=== PATIENT | female | born 1980 | race Caucasian/White ===

== ENCOUNTER 2017-03-30 09:43 | Emergency (ER) | payer OTHER ==
[2017-03-30 09:57] VITALS: BP 141/93; TEMP 97.9; O2SAT 97
--- NOTE | 2017-03-30 09:58 | ED.PDOC ---
History of Present Illness - General Chief Complaint: Lower Extremity Injury Stated Complaint: L outer foot/heel discomfort Time Seen by Provider: 03/30/17 09:58 Source: patient Exam Limitations: no limitations - History of Present Illness Initial Comments: Kayla Freeman 37 y/o female stated that she was exercising at [facility] on the [employer] machine but lost her balanced and twisted left ankle and foot then landed on the floor.Has buring pain on heel and side of her foot and ankle left with pain on weight bearing.No head/ neck'/hip injuries. Occurred: yesterday Pain - Lower Extremity: moderate: Left Ankle, Left Foot Method of Injury: twisted Improving Factors: rest Worsening Factors: movement Allergies/Adverse Reactions: Allergies NO KNOWN ALLERGY Allergy (Verified 03/30/17 09:57) Home Medications: Ambulatory Orders Citalopram Hydrobromide [Celexa] 10 mg PO DAILY 03/30/17 Gabapentin 600 mg PO BID 03/30/17 Losartan Potassium 50 mg PO DAILY 03/30/17 metFORMIN HCL [Glucophage] 500 mg PO BID 03/30/17 Review of Systems - Review of Systems Constitutional: States: no symptoms reported EENTM: States: no symptoms reported Respiratory: States: no symptoms reported Musculoskeletal: States: see HPI Neurological: States: no symptoms reported Past Medical History (General) - Patient Medical History Hx Stroke: No Hx Congestive Heart Failure: No Hx Hypertension: Yes Hx Diabetes: Yes Hx MRSA: No Hx Other PMH: Yes - fibromyalgia Surgical History: other - hysterectomy - Vaccination History Hx Influenza Vaccination: No Hx Pneumococcal Vaccination: No - Social History Hx Physical Abuse: No Hx Emotional Abuse: No Hx Suspected Abuse: No - Activities of Daily Living Patient Lives Alone: No - family - Female History Patient is a Female of Child Bearing Age (10 -59 yrs old): No - hysterectomy Family Medical History - Family History Mother Living Status: Still Living Hx Family Congestive Heart Failure: - Grandmother had CHF Hx Cardiac Disease: Yes Hx Family Diabetes: Yes - Grandmother had DM Physical Exam - Physical Exam General Appearance: Alert, No apparent distress Eyes, Ears, Nose, Throat: PERRL/EOMI, normal ENT inspection, pharynx normal Neck: non-tender, full range of motion, supple Cardiovascular/Respiratory: regular rate, rhythm, no M/R/G, normal peripheral pulses, normal breath sounds Gastrointestinal/Abdominal: non-tender, no organomegaly Back: normal inspection, no vertebral tenderness Thigh/Hip: normal inspection, no evidence of injury Leg: normal inspection, no evidence of injury Knee: normal inspection, no evidence of injury Ankle: limited ROM - pain,no instability, pain - left ankle, soft tissue tenderness Foot: limited ROM - pain, soft tissue tenderness Neuro/Tendon: normal sensation, normal motor functions, normal tendon functions , responds to pain, no evidence tendon injury Mental Status: alert, oriented x 3 Skin: normal color, warm/dry Progress - Progress Progress: 03/30/17 10:13 Last Vital Signs Temp 97.9 F 03/30/17 09:50 Pulse 76 03/30/17 09:50 Resp 18 03/30/17 09:50 BP 141/93 03/30/17 09:50 Pulse Ox 97 03/30/17 09:50 Departure - Departure Clinical Impression: with 19 completed weeks gestation Fall Qualifiers: Encounter type: initial encounter Qualified Code(s): W19.XXXA - Unspecified fall, initial encounter Contusion of groin, right Qualifiers: Encounter type: initial encounter Qualified Code(s): S30.1XXA - Contusion of abdominal wall, initial encounter Time of Disposition: :18 Disposition: Discharge to Home or Self Care Condition: Good Departure Forms: ED Discharge - Pt. Copy, Patient Portal Self Enrollment Referrals: Tucker Noe MD [Primary Care Provider] - 1-2 Weeks Home Medications: Ambulatory Orders Citalopram Hydrobromide [Celexa] 10 mg PO DAILY 03/30/17 Gabapentin 600 mg PO BID 03/30/17 Losartan Potassium 50 mg PO DAILY 03/30/17 metFORMIN HCL [Glucophage] 500 mg PO BID 03/30/17
--- NOTE | 2017-03-30 10:24 | ED.PDOC ---
History of Present Illness - General Chief Complaint: Lower Extremity Injury Stated Complaint: L outer foot/heel discomfort Time Seen by Provider: 03/30/17 09:58 Source: patient Exam Limitations: no limitations - History of Present Illness Initial Comments: Kayla Freeman 37 y/o female stated while exercising with the elliptical machine at [employer] center lost her balance twisting left ankle and foot then fell to the floor .Had burning pain on her left ankle ,heel and foot after the incident denies hip ;head injuries Occurred: yesterday Pain - Lower Extremity: moderate: Left Ankle, Left Foot Method of Injury: fell, twisted Improving Factors: rest Worsening Factors: movement Allergies/Adverse Reactions: Allergies NO KNOWN ALLERGY Allergy (Verified 03/30/17 09:57) Home Medications: Ambulatory Orders Citalopram Hydrobromide [Celexa] 10 mg PO DAILY 03/30/17 Gabapentin 600 mg PO BID 03/30/17 Losartan Potassium 50 mg PO DAILY 03/30/17 metFORMIN HCL [Glucophage] 500 mg PO BID 03/30/17 Review of Systems - Review of Systems Constitutional: States: no symptoms reported EENTM: States: no symptoms reported Respiratory: States: no symptoms reported Cardiology: States: no symptoms reported Musculoskeletal: States: see HPI Neurological: States: no symptoms reported Past Medical History (General) - Patient Medical History Hx Stroke: No Hx Congestive Heart Failure: No Hx Hypertension: Yes Hx Diabetes: Yes Hx MRSA: No Hx Other PMH: Yes - fibromyalgia Surgical History: other - hysterectomy - Vaccination History Hx Influenza Vaccination: No Hx Pneumococcal Vaccination: No - Social History Hx Physical Abuse: No Hx Emotional Abuse: No Hx Suspected Abuse: No - Activities of Daily Living Patient Lives Alone: No - family - Female History Patient is a Female of Child Bearing Age (10 -59 yrs old): No - hysterectomy Family Medical History - Family History Mother Living Status: Still Living Hx Family Congestive Heart Failure: Yes - Grandmother had CHF Hx Cardiac Disease: Yes Hx Family Diabetes: Yes - Grandmother had DM Physical Exam - Physical Exam General Appearance: Alert, No apparent distress Eyes, Ears, Nose, Throat: PERRL/EOMI, normal ENT inspection, pharynx normal Neck: non-tender, full range of motion Cardiovascular/Respiratory: regular rate, rhythm, no M/R/G, normal peripheral pulses, normal breath sounds Gastrointestinal/Abdominal: non-tender, no organomegaly Back: normal inspection, no vertebral tenderness Thigh/Hip: normal inspection, no evidence of injury Leg: normal inspection, no evidence of injury Knee: normal inspection, no evidence of injury Ankle: limited ROM - painful, pain - weight bearing, soft tissue tenderness - left ankle Foot: bone tenderness - left foot, limited ROM - pain Neuro/Tendon: normal sensation, normal motor functions, normal tendon functions , responds to pain Mental Status: alert, oriented x 3 Skin: normal color, warm/dry Progress - Progress Progress: 03/30/17 10:45 Last Vital Signs Temp 97.9 F 03/30/17 09:50 Pulse 76 03/30/17 09:50 Resp 18 03/30/17 09:50 BP 141/93 03/30/17 09:50 Pulse Ox 97 03/30/17 09:50 - EKG/XRAY/CT XRAY: ankle - no fractures-left ankle Departure - Departure Clinical Impression: Fall Qualifiers: Encounter type: initial encounter Qualified Code(s): W19.XXXA - Unspecified fall, initial encounter Sprain of foot, left Qualifiers: Encounter type: initial encounter Qualified Code(s): S93.602A - Unspecified sprain of left foot, initial encounter Sprain of left ankle Qualifiers: Encounter type: initial encounter Involved ligament of ankle: tibiofibular ligament Qualified Code(s): S93.432A - Sprain of tibiofibular ligament of left ankle, initial encounter Time of Disposition: 10:50 Disposition: Discharge to Home or Self Care Condition: Good Departure Forms: ED Discharge - Pt. Copy, Patient Portal Self Enrollment Instructions: DI for Ankle Sprain, DI for Foot Sprain Referrals: Tucker Noe MD [Primary Care Provider] - 1-2 Weeks Home Medications: Ambulatory Orders Citalopram Hydrobromide [Celexa] 10 mg PO DAILY 03/30/17 Gabapentin 600 mg PO BID 03/30/17 Losartan Potassium 50 mg PO DAILY 03/30/17 metFORMIN HCL [Glucophage] 500 mg PO BID 03/30/17 Additional Instructions: May take Aleve (otc) one tablet 2-3 x a day for pain as needed;Follow up with primary md in one week call for appointment if needed
--- NOTE | 2017-03-30 10:32 | RAD ---
Left ankle three views INDICATION: Ankle pain IMPRESSION: No fracture or focal destructive process. No advanced arthrosis. No focal osteochondral lesion. Mortise and syndesmosis appear congruent. Small plantar spur/enthesophyte. Electronically signed by: Mamadou Faria MD 03/30/2017 10:31 AM CDT
--- NOTE | 2017-03-30 10:32 | RAD ---
Left foot three views INDICATION: Foot pain IMPRESSION: Small osseous excrescence in the distal phalanx of the great toe developmental in appearance. Mild soft tissue swelling over the lateral aspect of the small toe. This may be post traumatic or inflammatory. No definite fracture in this area. Small plantar spur/enthesophyte. Electronically signed by: Maamdou Faria MD 03/30/2017 10:30 AM CDT
== END 2017-03-30 11:02 | disposition home or self-care (01) ==
LOC: ER 09:43
DX: S93.602A Unspecified sprain of left foot, initial encounter (principal); S93.432A Sprain of tibiofibular ligament of left ankle, initial encounter; I10 Essential (primary) hypertension; E11.9 Type 2 diabetes mellitus without complications; M79.7 Fibromyalgia; X58.XXXA Exposure to other specified factors, initial encounter; Y93.A1 Activity, exercise machines primarily for cardiorespiratory conditioning; Y92.89 Other specified places as the place of occurrence of the external cause

== ENCOUNTER → 2017-09-30 | Outpatient (CLI) | payer OTHER ==
--- NOTE | 2017-10-01 11:25 | US ---
EXAM DESCRIPTION: Abdomen,Complete CLINICAL HISTORY: R10.11 R19.7 right upper quadrant pain COMPARISON: None. TECHNIQUE: Real-time sonographic images of the abdomen are obtained. FINDINGS: Pancreas is unremarkable. The right lobe of the liver measures 17.3 cm. The liver is diffusely heterogeneous and increased in echogenicity. No focal hepatic mass is seen. The gallbladder is normally distended and free of abnormal internal echogenicities. No gallbladder wall thickening or pericholecystic fluid is seen. The common bile duct measures 5.4mm in greatest diameter. The right kidney measures 11.1 x 4.6 x 5.3cm. The left kidney measures 11.2 x 5.7 x 5.9 cm. There is an 11 x 14 x 12 mm anechoic cyst of the upper pole left kidney. Both kidneys show normal renal cortical echogenicity. No hydronephrosis is seen. The spleen measures 12.4 cm. Visualized IVC and abdominal aorta are within normal limits. IMPRESSION: Hepatomegaly with heterogeneous increased echogenicity of the liver suggest diffuse fatty infiltration. Simple appearing left renal cortical cyst. Electronically signed by: Сергей Cardenas MD 10/01/2017 11:23 AM CDT
== END ==
LOC: US 08:19
PROVIDERS: ATTEND Obstetrics & Gynecology
DX: R10.11 Right upper quadrant pain (principal); R19.7 Diarrhea, unspecified; R16.0 Hepatomegaly, not elsewhere classified